=== PATIENT | male | born 1950 | race Caucasian/White ===

== ENCOUNTER 2022-09-10 19:25 | Observation (INO) | payer OTHER, MEDICARE ==
[2022-09-10] MEDS ORDERED: Acetaminophen 500 MG TAB ONE (20:32)
[2022-09-10] MEDS ORDERED: oxyCODONE 5 MG TAB PO PRN (20:38)
[2022-09-10 21:10] LABS: #Basophils 0.1 thou/uL (0.0-0.2); #Eosinphils 0.2 thou/uL (0.0-0.7); #Lymphocytes 1.4 thou/uL (1.20-3.40); %Basophils 0.4 % (0.0-1.0); %Eosinophils 1.3 % (0.0-10.0); %Lymphocytes 10.1 % (21.0-51.0); %Monocytes 7.6 % (0.0-10.0); %Neutrophils 80.7 % (42.0-75.0); Hemoglobin 15.9 g/dL (14.0-18.0); Mean Corpuscular HGB CONC 33.2 g/dL (32.0-36.0); Mean Corpuscular Hemoglobin 31.7 pg (27.0-31.0); Mean Corpuscular Volume 95.5 fl (78.0-98.0); Mean Platelet Volume 7.2 fL (7.4-10.4); Platelet Count 175 10x3/uL (130-400); RBC Distribution Width 12.9 % (11.5-14.5); Red Blood Cell (RBC) Count 5.02 mill/uL (4.70-6.10); White Blood Cell (WBC) Count 13.6 10x3/uL (4.8-10.8)
[2022-09-10] MEDS ORDERED: Morphine 4 MG/ML VIAL ONE (21:13)
[2022-09-10] MEDS ORDERED: Ondansetron PF 4 MG/2 ML Vial ONE (21:14)
[2022-09-10 21:22] LABS: INR-International Normal Ratio 0.9; Prothrombin Time 12.8 sec (12.0-14.7)
[2022-09-10 21:23] LABS: PTT 26.9 sec (22.9-36.1)
[2022-09-10 21:31] LABS: ALT (SGPT) 40 U/L (8-55); AST (SGOT) 61 U/L (5-34); Alkaline Phosphatase 51 U/L (40-110); Anion Gap 13 mmol/L (10-20); BUN (Urea Nitrogen) 14 mg/dL (8.4-25.7); Bilirubin, Total 0.5 mg/dL (0.2-1.2); Calc. Creatinine Clearance 0 mL/min (70-130); Calcium 9.2 mg/dL (7.8-10.44); Carbon Dioxide 26 mmol/L (23-31); Chloride 105 mmol/L (98-107); Estimated GFR 83; Globulin 2.7 g/dL (2.4-3.5); Glucose 148 mg/dL (83-110); Potassium 4.3 mmol/L (3.5-5.1); Protein, Total 6.7 g/dL (5.8-8.1); Sodium 140 mmol/L (136-145)
[2022-09-11] MEDS ORDERED: TETANUS, DIPHTHERIA TOX,ADULT (TDVAX) 0.5 ML VIAL IM ONE (00:40)
[2022-09-11] MEDS ORDERED: Dextrose 5% in Water 1,000 ML IV PRN (00:40)
[2022-09-11] MEDS ORDERED: Ondansetron PF 4 MG/2 ML Vial IVP PRN (00:40)
[2022-09-11] MEDS ORDERED: Insulin Regular 300 UNITS/3 ML VIAL SC PRN ×2 (00:40)
[2022-09-11] MEDS ORDERED: Ipratropium/Albuterol 3 ML NEB NEB PRN (00:40)
[2022-09-11] MEDS ORDERED: hydrALAZINE 20 MG/ML VIAL SLOW IVP PRN (00:40)
[2022-09-11] MEDS ORDERED: Dextrose 50% Abboject 50 ML SYRINGE SLOW IVP PRN (00:40)
[2022-09-11] MEDS: Morphine 2 MG/ML VIAL SLOW IVP PRN ×3 (01:24→08:33)
[2022-09-11 02:25] LABS: SARS-CoV-2 NAA Rapid Test Not Detected (NotDetected)
[2022-09-11 02:48] VITALS: BMI 33.3
[2022-09-11] MEDS: Acetaminophen 500 MG TAB PO SCH ×4 (05:18→23:49)
[2022-09-11 06:12] LABS: #Eosinphils 0.1 thou/uL (0.0-0.7); #Lymphocytes 1.2 thou/uL (1.20-3.40); #Monocytes 1.2 thou/uL (0.11-0.59); #Neutrophils 11.8 thou/uL (1.40-6.50); %Basophils 0.1 % (0.0-1.0); %Eosinophils 0.4 % (0.0-10.0); %Lymphocytes 8.4 % (21.0-51.0); %Monocytes 8.6 % (0.0-10.0); %Neutrophils 82.5 % (42.0-75.0); Hemoglobin 14.5 g/dL (14.0-18.0); Mean Corpuscular HGB CONC 33.2 g/dL (32.0-36.0); Mean Corpuscular Hemoglobin 32.3 pg (27.0-31.0); Mean Corpuscular Volume 97.1 fl (78.0-98.0); Mean Platelet Volume 7.3 fL (7.4-10.4); Platelet Count 188 10x3/uL (130-400); RBC Distribution Width 12.8 % (11.5-14.5); Red Blood Cell (RBC) Count 4.49 mill/uL (4.70-6.10); White Blood Cell (WBC) Count 14.3 10x3/uL (4.8-10.8)
[2022-09-11 06:19] LABS: PTT 28.1 sec (22.9-36.1); Prothrombin Time 13.3 sec (12.0-14.7)
[2022-09-11 06:28] LABS: Phosphorus 3.8 mg/dL (2.3-4.7)
[2022-09-11 06:29] LABS: Anion Gap 14 mmol/L (10-20); BUN (Urea Nitrogen) 15 mg/dL (8.4-25.7); Calc. Creatinine Clearance 112 mL/min (70-130); Calcium 8.9 mg/dL (7.8-10.44); Carbon Dioxide 24 mmol/L (23-31); Chloride 106 mmol/L (98-107); Estimated GFR 88; Glucose 172 mg/dL (83-110); Magnesium 1.8 mg/dL (1.6-2.6); Potassium 4.5 mmol/L (3.5-5.1); Sodium 139 mmol/L (136-145)
[2022-09-11] MEDS: Senokot S 8.6-50 MG TAB PO SCH ×2 (08:33→20:00)
[2022-09-11] MEDS: Famotidine/PF 20 mg/2ml Vial SLOW IVP SCH ×2 (08:33→20:01)
[2022-09-11] MEDS: Polyethylene Glycol 3350 17 GM Packet PO SCH (08:33)
[2022-09-11] MEDS ORDERED: traMADol HCl 50 MG TAB PO PRN (14:44)
[2022-09-11] MEDS: guaiFENesin 200 MG TAB PO SCH ×2 (15:35→23:49)
[2022-09-11] MEDS: Ipratropium/Albuterol 3 ML NEB NEB SCH ×2 (19:25→23:35)
[2022-09-12] MEDS: Acetaminophen 500 MG TAB PO SCH ×2 (06:30→12:32)
[2022-09-12] MEDS: guaiFENesin 200 MG TAB PO SCH (06:30)
[2022-09-12 07:07] LABS: #Eosinphils 0.2 thou/uL (0.0-0.7); #Lymphocytes 1.7 thou/uL (1.20-3.40); #Neutrophils 7.2 thou/uL (1.40-6.50); %Basophils 0.4 % (0.0-1.0); %Eosinophils 2.2 % (0.0-10.0); %Lymphocytes 16.8 % (21.0-51.0); %Monocytes 9.6 % (0.0-10.0); %Neutrophils 71.1 % (42.0-75.0); Hemoglobin 13.5 g/dL (14.0-18.0); Mean Corpuscular Hemoglobin 32.2 pg (27.0-31.0); Mean Corpuscular Volume 97.6 fl (78.0-98.0); Mean Platelet Volume 6.9 fL (7.4-10.4); Platelet Count 159 10x3/uL (130-400); RBC Distribution Width 12.9 % (11.5-14.5); White Blood Cell (WBC) Count 10.2 10x3/uL (4.8-10.8)
[2022-09-12 07:25] LABS: Anion Gap 13 mmol/L (10-20); BUN (Urea Nitrogen) 14 mg/dL (8.4-25.7); Calc. Creatinine Clearance 114 mL/min (70-130); Carbon Dioxide 25 mmol/L (23-31); Chloride 103 mmol/L (98-107); Estimated GFR 90; Glucose 134 mg/dL (83-110); Magnesium 1.9 mg/dL (1.6-2.6); Phosphorus 3.2 mg/dL (2.3-4.7); Potassium 4.1 mmol/L (3.5-5.1); Sodium 137 mmol/L (136-145)
[2022-09-12] MEDS: Ipratropium/Albuterol 3 ML NEB NEB SCH ×2 (07:34→14:33)
[2022-09-12] MEDS ORDERED: Magnesium 2 GM/50 ML(in water) 1 GM in Premix Bag 1 BAG IVPB SCH (08:45)
[2022-09-12] MEDS ORDERED: Rosuvastatin 5 MG TAB PO SCH (09:00)
[2022-09-12] MEDS ORDERED: Tamsulosin HCl 0.4 MG CAP PO SCH (09:00)
[2022-09-12] MEDS: Polyethylene Glycol 3350 17 GM Packet PO SCH (10:08)
[2022-09-12] MEDS: Famotidine/PF 20 mg/2ml Vial SLOW IVP SCH (10:08)
[2022-09-12] MEDS: Senokot S 8.6-50 MG TAB PO SCH (10:08)
[2022-09-12 12:04] VITALS: BP 116/76; TEMP 97.9
== END 2022-09-12 15:21 | disposition home or self-care (01) ==
LOC: ERS 19:25 → SURG A 22:05
PROVIDERS: ADMIT Surgery; ATTEND Surgery
DX: S06.6XAA Traumatic subarachnoid hemorrhage with loss of consciousness status unknown, initial encounter (principal); G89.11 Acute pain due to trauma; S12.600A Unspecified displaced fracture of seventh cervical vertebra, initial encounter for closed fracture; J06.9 Acute upper respiratory infection, unspecified; S43.101A Unspecified dislocation of right acromioclavicular joint, initial encounter; E11.42 Type 2 diabetes mellitus with diabetic polyneuropathy; N40.0 Benign prostatic hyperplasia without lower urinary tract symptoms; I11.9 Hypertensive heart disease without heart failure; E78.00 Pure hypercholesterolemia, unspecified; R09.02 Hypoxemia; Z23 Encounter for immunization; Z79.4 Long term (current) use of insulin; Z79.84 Long term (current) use of oral hypoglycemic drugs; Z79.899 Other long term (current) drug therapy; Z95.2 Presence of prosthetic heart valve; Z20.822 Contact with and (suspected) exposure to COVID-19; V43.63XA Car passenger injured in collision with pick-up truck in traffic accident, initial encounter
CPT/HCPCS: 70450 ×2; 71045 ×2; 72125; 73030; 73070; 73564; 80048 ×2; 80053; 82962 ×2; 83735 ×2; 84100 ×2; 85025 ×3; 85610 ×2; 85730 ×2; 86850; 86900; 86901; 90714; 94640 ×3; 96374; 96375 ×3; 96376 ×2; 97116 ×2; 97530 ×2; 99285; G0378 ×3; U0002; 36415; 36416; J1815; J2270; J2272; J2405; J3475; J3490; J7620; S0028